=== PATIENT | male | born 1960 | race Caucasian/White ===

== ENCOUNTER → 2020-08-31 | Outpatient (CLI) | payer OTHER | LOC: COL.VAS | DX: I82.411 Acute embolism and thrombosis of right femoral vein (principal) ==

== ENCOUNTER 2021-11-26 07:28 | Emergency (ER) | payer SELFPAY ==
[~2021-11-26] VITALS: Ht 172.7 cm; Wt 59.1 kg
[2021-11-26 07:39] VITALS: TEMP 98
[2021-11-26 08:06] LABS: BASO # 0.1 K/mm3 (0.0-0.2); BASO % 1.1 % (0.0-2.0); EOS # 0.2 K/mm3 (0.0-0.7); GRAN # 3.2 K/mm3 (1.4-6.5); GRAN % 58.9 % (42.2-75.2); HEMATOCRIT 45.8 % (42.0-52.0); HEMOGLOBIN 16.1 g/dl (13.5-18.0); LYMPH # 1.3 K/mm3 (1.2-3.4); LYMPH % 24.6 % (20.0-51.0); MEAN CELL VOLUME 92 fl (80.0-100.0); MEAN CORPUSCULAR HEMOGLOBIN 33 pg (27-31); MEAN CORPUSCULAR HGB CONC 35 g/dl (33.0-37.0); MEAN PLATELET VOLUME 9.2 fl (7.4-10.4); MONO # 0.6 K/mm3 (0.1-0.6); MONO % 11.2 % (1.7-9.3); PLATELET COUNT 169 K/mm3 (130-400); RED BLOOD COUNT 4.96 M/mm3 (4.20-5.60); REDCELL DISTRIBUTION WIDTH-CV 10.9 % (11.5-14.5)
[2021-11-26 08:26] LABS: C-REACTIVE PROTEIN 0.45 mg/dL (0.00-0.50); CALCIUM 8.6 mg/dL (8.4-10.2); CREATININE, serum 0.72 mg/dL (0.72-1.25); POTASSIUM 3.9 mmol/L (3.5-4.5); URIC ACID 7.7 mg/dL (3.5-7.2)
[2021-11-26] MEDS ORDERED: PREDNISONE20 MG PO (09:01)
[2021-11-26 09:10] VITALS: BP 151/93; PULSE 78
== END 2021-11-26 09:10 | disposition home or self-care (01) ==
LOC: COL.ER 07:28
PROVIDERS: Emergency Medicine
DX: S62.33 Displaced fracture of neck of other metacarpal bone (principal); M10.9 Gout, unspecified; Z87.891 Personal history of nicotine dependence; X58.XXXA Exposure to other specified factors, initial encounter

== ENCOUNTER 2021-12-12 13:22 | Emergency (ER) | payer SELFPAY ==
[~2021-12-12 13:22] MED LIST: PREDNISONE20 MG PO
== END 2021-12-12 14:16 | disposition left against medical advice (07) ==
LOC: COL.ER 13:22
DX: Z72.89 Other problems related to lifestyle (principal)